=== PATIENT | male | born 1975 | race Caucasian/White ===

== ENCOUNTER 2018-03-21 11:00 | Outpatient (CLI) | payer OTHER | END 2018-03-21 11:01 | disposition home or self-care (01) | LOC: SC 11:00 | PROVIDERS: ATTEND Internal Medicine Pulmonary Disease | DX: G47.33 Obstructive sleep apnea (adult) (pediatric) (principal) | CPT/HCPCS: 99203; 99212 ==

== ENCOUNTER 2018-04-17 20:00 | Outpatient (CLI) | payer OTHER | END 2018-04-17 20:01 | disposition home or self-care (01) | LOC: SC 20:00 | PROVIDERS: ATTEND Internal Medicine Pulmonary Disease | DX: G47.33 Obstructive sleep apnea (adult) (pediatric) (principal) | CPT/HCPCS: 95811 ==

== ENCOUNTER 2018-05-30 14:10 | Outpatient (CLI) | payer OTHER | END 2018-05-30 14:11 | disposition home or self-care (01) | LOC: SC 14:10 | PROVIDERS: ATTEND Internal Medicine Pulmonary Disease | DX: G47.33 Obstructive sleep apnea (adult) (pediatric) (principal) | CPT/HCPCS: 99212; 99213 ==

== ENCOUNTER 2018-08-08 15:05 | Outpatient (CLI) | payer OTHER | END 2018-08-08 15:06 | disposition home or self-care (01) | LOC: SC 15:05 | PROVIDERS: ATTEND Internal Medicine Pulmonary Disease | DX: G47.33 Obstructive sleep apnea (adult) (pediatric) (principal) | CPT/HCPCS: 99212; 99213 ==

== ENCOUNTER 2019-11-09 13:46 | Outpatient (CLI) | payer OTHER ==
[2019-11-09 13:34] VITALS: BP 130/74
--- NOTE | 2019-11-09 13:34 | SLEEP CARE CONSULTATION ---
Information from patient questionnaire entered by Savannah Peralta. I have reviewed and concur with the information entered by Savannah Peralta. This document represents the service I personally performed and the decisions made by me, Regina Smith, RN, MSN, PREMIUM SERVICE REPRESENTATIVE. History of Present Illness Service Date and Time: 11/09/2019 1346 Previous diagnosis: Very Severe, Obstructive Sleep Apnea-Hypopnea Syndrome AHI: 79.6 (in 2018) Reason for follow up: annual (last seen 2019) Equipment type: CPAP Equipment obtained from: [employer] (getting supplies as needed) Mask style: Nasal Backup mask available: Yes (old mask ) Last cushion change: few weeks ago Year and Where: 2018 - [facility] Type of Sleep Study: Polysomnography CPAP Compliance Data - Data Reviewed with Patient Average duration of nightly device use: 6.5 Compliance rate %: 73 (180 days) Current pressure setting (cmH2O): 8-12 Humidity setting: auto Heated hose setting: auto Average residual AHI: 1.6 Average large leak: minimal Subjective Missed days of use due to: reports: other (ran out of distilled water and took a while to replace) Patient concerns: denies: aerophagia, mask discomfort, air blowing in eyes, mask leak noise, condensation in mask/hose, nasal congestion, dry mouth, nose, throat, epistaxis, other Observed to snore while using device: No Current pressure setting perceived as: comfortable On therapy, patient: reports: sleeping better, awakening more refreshed, being more awake and alert during the day, more rested overall. denies: drowsiness while driving Initial Emerson Sleepiness Scale score: 18 (in 2018) Current Emerson Sleepiness Scale score: 7 Allergies and Home Medications Home medication list reviewed: No (stated no changes) Allergy and home medication list: Metformin 500mg bid cyclobenzaprine 10mg prn - uses rarely for back muscle spasms Review of Systems Review of systems same as previous: Yes Physical Exam Blood Pressure: 130/74 Cuff size: long Heart Rate: 88 O2 Saturation: 97 Height: 5 ft 10.5 in Weight: 220 lb Body Mass Index: 31.1 BMI Classification: Obese Impression and Plan 1. Obstructive Sleep Apnea-Hypopnea Syndrome, very severe, with good treatment compliance and good apnea control. On CPAP therapy, the patient has better sleep quality and is more rested overall. The ramp made him feel air hunger so ramp disabled. I also discussed how ramp can be adjusted if needed in future. Patient has gained a little weight. Currently patients BMI is 31 obesity class . Obesity increases the risk of apnea, CPAP pressure requirements and overall health risks especially cardiovascular and diabetes. Thus patient is advised to continue to lose weight. Weight loss can be done with reducing portion size, reducing refined foods and balancing content with vegetables, fruit and protein. In addition tracking food intake will allow awareness of how to modify diet to achieve weight loss goals. Also eating more slowly will allow more awareness of food intake and enjoyment of food while assisting patient to modify intake at each meal. A diet consultation can be helpful in achieving optimal weight loss goals. The BMI chart was reviewed. Patient encouraged to discuss their weight loss goals with their PCP and consider a referral to a it systems administrator. The patient's CPAP pressure range should accommodate some weight loss. Symptoms to report for additional pressure adjustment discussed.Patient's apnea severity and rationale for treatment to reduce apnea, improve sleep quality and reduce cardiovascular and cerebrovascular events was reviewed. He is encouraged to use CPAP with all sleep for maximum benefit of treatment. So if no distilled water , he can turn off humidity and use CPAP. Patient states since earlier this year he has made sure he has a back up of distilled water. He reports a possible transfer next year so advised to make appointment before transfer date. He is to ask [facility] [place] if able to send equipment to his new transfer site, if not he switch to a DME who can. * Continue auto CPAP pressure at [id number] * Update supplies * Notify me if snoring with mask or feeling that the pressure is too much or too little * Attempt to lose weight * Call this office if any problems using CPAP * Return for follow up in 1 year , or sooner if concerns arise Visit Type: In Office Time Spent with Patient (minutes): 25 Provider Statement: I spent 100% of the Face to Face Visit with the patient with greater than 50% spent counseling the patient and coordination of care.
== END 2019-11-09 13:47 | disposition home or self-care (01) ==
LOC: SC 13:46
PROVIDERS: ATTEND Nurse Practitioner Family
DX: G47.33 Obstructive sleep apnea (adult) (pediatric) (principal); E66.9 Obesity, unspecified; Z68.31 Body mass index [BMI] 31.0-31.9, adult
CPT/HCPCS: 99212; 99214

== ENCOUNTER 2020-11-11 14:44 | Outpatient (CLI) | payer OTHER ==
--- NOTE | 2020-11-11 16:45 | SLEEP CARE CONSULTATION ---
Information from patient questionnaire entered by Savannah Peralta. I have reviewed and concur with the information entered by Savannah Peralta. This document represents the service I personally performed and the decisions made by me, Edward Odonnell MD, [facility]. History of Present Illness Service Date and Time: 11/11/2020 1444 Previous diagnosis: Very Severe, Obstructive Sleep Apnea-Hypopnea Syndrome AHI: 79.6 (in 2018) Reason for follow up: annual (last seen 10/2019) Equipment type: [facility] style: Nasal Prior sleep studies: Yes Year and Where: 2018 - [facility] HPI additional information: HPI: Mr. Odonnell returned today for follow up of nasal CPAP therapy. He was diagnosed to have very severe obstructive sleep apnea-hypopnea syndrome. The patient went to [facility] for the equipment and was fitted with a nasal mask. He reports using the device nightly and all through the night. The compliance report shows usage in 178 nights out of the past 180 nights, averaging 8.1 hours a night. The > 4 hour compliance rate for the past 30 days is 97%. He complained of no particular problem with the device such as soreness on the face, dry nose, epistaxis, nasal congestion or headache. He thinks that the pressure of 8 - 12 cmH2O is comfortable. On the CPAP therapy he notices improvement in his sleep quality, and that he wakes up feeling fresher in the morning and more awake/alert during the day. The Louann Sleepiness Scale score 5. His notices no snore at all. The average residual AHI is 1.1;; and air leak, 4.5 L/min. The 90th percentile pressure is 10.2 cmH2O. CPAP Compliance Data - Data Reviewed with Patient Average duration of nightly device use: 8 hr 3 min Compliance rate %: 97 (180 days) Current pressure setting (cmH2O): 8-12 Humidity settin Average residual AHI: 1.1 Subjective Missed days of use due to: reports: travel, other (power outage) Patient concerns: reports: nasal congestion (but probably unrelated), dry mouth, nose, throat (mouth) Initial Louann Sleepiness Scale score: 18 (in 2018) Current Louann Sleepiness Scale score: 5 Allergies and Home Medications Drug allergies reviewed: Yes Home medication list reviewed: Yes Review of Systems Review of systems same as previous: Yes Physical Exam Height: 5 ft 10.5 in Weight: 228 lb Body Mass Index: 32.2 BMI Classification: Obese Impression and Plan IMPRESSION: 1. Obstructive Sleep Apnea-Hypopnea Syndrome, very severe, with the patient doing well on nasal CPAP therapy. He has excellent compliance and significant clinical improvement. The current pressure appears effective and comfortable. Overall, he is very satisfied with treatment and plans to continue with it long-term. No adjustment is necessary today. PLAN: 1. Continue with autoCPAP set at 8 - 12 cmH2O. 2. Try to lose weight 3. Try ResMed [id number] mask 4. Return in one year for follow up or earlier if there is any problem with the treatment. Follow up recommended for: Weight management Visit Type: In Office Time Spent with Patient (minutes): 15 Provider Statement: I spent 100% of the Face to Face Visit with the patient with greater than 50% spent counseling the patient and coordination of care.
== END 2020-11-11 14:45 | disposition home or self-care (01) ==
LOC: SC 14:44
PROVIDERS: ATTEND Internal Medicine Pulmonary Disease
DX: G47.33 Obstructive sleep apnea (adult) (pediatric) (principal); E66.9 Obesity, unspecified; Z68.32 Body mass index [BMI] 32.0-32.9, adult
CPT/HCPCS: 99212